=== PATIENT | female | born 1965 | race Caucasian/White ===

== ENCOUNTER 2019-01-11 17:18 | Emergency (ER) | payer OTHER ==
[2019-01-11 17:36] VITALS: TEMP 98.3; BMI 20.3
--- NOTE | 2019-01-11 18:15 | PDOC ---
History of Present Illness - General Chief Complaint: Chest Pain Stated Complaint: CHEST PAIN Time Seen by Provider: 01/11/19 17:28 History Source: Patient Exam Limitations: No Limitations - History of Present Illness Initial Comments: 53 yo F no PMH p/w short episodic chest pain. States that she felt the first episode earlier this month while running, 01/18. crampy, "like when your leg muscles cramp up", lasting only a couple of seconds. Had two more episodes earlier this week associated with exercise, but had two today, with one at rest. She states that her chest pain is left sided and does not radiate anywhere. Specifically denies nausea, diaphoresis, sense of doom. She does endorse feeling like she is having some extra heartbeats. Further denies abdominal pain, N/V, constipation/diarrhea, fevers/chills. 01/11/19 18:00 01/11/19 18:13 Past History - Past Medical History Allergies/Adverse Reactions: Allergies Allergy/AdvReac Type Severity Reaction Status Date / Time No Known Allergies Allergy Verified 01/11/19 17:19 Home Medications: Ambulatory Orders NK [No Known Home Medication] 01/11/19 COPD: No - Immunization History TDAP Vaccination: No - Suicide/Smoking/Psychosocial Hx Smoking Status: No Smoking History: Never smoked Have you smoked in the past 12 months: No Number of Cigarettes Smoked Daily: 0 Information on smoking cessation initiated: No Hx Alcohol Use: (3x/week) Review of Systems - Review of Systems Constitutional: No: Chills, Diaphoresis, Fever HEENTM: No: Recent change in vision, Double Vision, Hearing Loss, Difficulty Swallowing Respiratory: No: Cough, Orthopnea, Shortness of Breath Cardiac (ROS): Yes: Chest Pain (not currently) ABD/GI: No: Constipated, Diarrhea, Nausea, Vomiting Neurological: No: Headache *Physical Exam - Vital Signs Last Vital Signs Temp Pulse Resp BP Pulse Ox 98.3 F 56 L 18 109/71 99 01/11/19 17:18 01/11/19 17:18 01/11/19 17:18 01/11/19 17:18 01/11/19 17:18 - Physical Exam General Appearance: Yes: Nourished, Appropriately Dressed. No: Apparent Distress HEENT: positive: EOMI, BEVERLY, Normal ENT Inspection, Normal Voice, Symmetrical, Pharynx Normal, Hearing Grossly Normal Neck: positive: Trachea midline, Normal Thyroid, Supple Respiratory/Chest: positive: Lungs Clear, Normal Breath Sounds. negative: Chest Tender, Respiratory Distress, Accessory Muscle Use Cardiovascular: positive: Regular Rhythm, Regular Rate, Other (some extra beats) Gastrointestinal/Abdominal: positive: Normal Bowel Sounds, Soft. negative: Tender Musculoskeletal: positive: Normal Inspection. negative: CVA Tenderness Extremity: positive: Normal Capillary Refill, Normal Inspection, Normal Range of Motion Integumentary: positive: Normal Color, Dry Neurologic: positive: software writer II-XII NML intact, Fully Oriented, Alert, Normal Mood/ Affect, Normal Response, Motor Strength 10/13 ED Treatment Course - LABORATORY CBC & Chemistry Diagram: 01/11/19 18:25 01/11/19 18:25 Medical Decision Making - Medical Decision Making Labs reviewed, wnl 01/11/19 19:26 *DC/Admit/Observation/Transfer Diagnosis at time of Disposition: Atypical chest pain - Discharge Dispostion Disposition: HOME Condition at time of disposition: Guarded Decision to Admit order: No - Referrals - Patient Instructions Printed Discharge Instructions: DI for Atypical Chest Pain Additional Instructions: You were seen for episodic crampy chest pain. An EKG was performed, which did not show any acute changes. Your labs were also drawn, which were also found to be normal. Please follow up with your primary care physician for further work up. - Post Discharge Activity
--- NOTE | 2019-01-11 18:38 | PDOC ---
Attending Attestation - Resident Resident Name: Love Freeman - ED Attending Attestation I have performed the following: I have examined & evaluated the patient, The case was reviewed & discussed with the resident, I agree w/resident's findings & plan, Exceptions are as noted - HPI HPI: 01/11/19 18:34 5 episodes of momentary left upper anterior chest pain in the last few days, occurring both at rest and with exercise, described as a "cramping sensation" no radiation of the pain and no other associated symptoms. Denies indigestion, increased stress, muscle strain or injury. Has no cardiac risk factors including negative family history. - Physicial Exam PE: 01/11/19 18:36 Physical exam shows mild sinus bradycardia, but the patient is a runner. Heart and lungs are normal. She appears to be vigorous - Medical Decision Making 01/11/19 18:36 Assessment: Atypical chest pain, probably musculoskeletal or related to anxiety Plan: EKG and enzymes: Normal. CBC and chemistries: Normal. Rest. Patient intends to follow-up with personal service workers and get another stress test which she had 10 years ago for no apparent reason other than it was recommended by her primary physician.
[2019-01-11 18:45] LABS: BASO % 0.9 % (0-2.0); EOS % 2.5 % (0-4.5); HEMATOCRIT 40.7 % (32.4-45.2); HEMOGLOBIN 13.5 GM/dl (10.7-15.3); LYMPH % 15.9 % (8-40); MCHC 33.2 g/dl (32.0-36.0); MEAN CELL VOLUME 93.4 fl (80-96); MEAN PLT VOLUME 8.8 fl (7.5-11.1); MONO % 5.7 % (3.8-10.2); PLATELET COUNT 282 K/MM3 (134-434); RBC 4.36 M/mm3 (3.60-5.2); RDW 12.9 % (11.6-15.6)
[2019-01-11 19:03] LABS: ALBUMIN 4.1 g/dl (3.4-5.0); BILIRUBIN,TOTAL 0.5 mg/dl (0.2-1); CALCIUM 9.3 mg/dl (8.5-10); CREATININE 0.8 mg/dl (0.55-1.3); POTASSIUM 4.2 mmol/L (3.5-5.1); TOT PROT 7.5 g/dl (6.4-8.2)
[2019-01-11 19:38] VITALS: BP 118/71; PULSE 68
--- NOTE | 2019-01-12 09:15 | EKG ---
Test Reason : Blood Pressure : / mmHG Vent. Rate : 057 BPM Atrial Rate : 057 BPM P-R Int : 158 ms QRS Dur : 068 ms QT Int : 418 ms P-R-T Axes : 070 059 051 degrees QTc Int : 406 ms SINUS BRADYCARDIA OTHERWISE NORMAL ECG NO PREVIOUS ECGS AVAILABLE Confirmed by SHANNA CONWAY MD ([id number]) on 01/12/2019 9:15:26 AM Referred By: DARVIN SHOEMAKER Confirmed By:SHANNA CONWAY MD
== END 2019-01-11 19:35 | disposition home or self-care (01) ==
LOC: FER 17:18
DX: R07.89 Other chest pain (principal)
CPT/HCPCS: 36415; 80053; 84484; 85025; 93005; 99284-25

== ENCOUNTER 2019-05-22 07:37 | Emergency (ER) | payer OTHER ==
[2019-05-22] MEDS ORDERED: FLUORESCEIN NA 1 EA STRIP OD ONE (07:42)
[2019-05-22] MEDS ORDERED: TETRACAINE 0.5% OPHTH SOLN 2 ML BOTTLE OD ONE (07:43)
[2019-05-22] MEDS ORDERED: FLUORESCEIN NA 1 EA STRIP ONE (07:47)
[2019-05-22] MEDS ORDERED: TETRACAINE 0.5% OPHTH SOLN 2 ML BOTTLE ONE (07:47)
[2019-05-22 08:03] VITALS: BP 128/80; PULSE 71; TEMP 98.3; BMI 25.0
--- NOTE | 2019-05-22 08:18 | PDOC ---
History of Present Illness - General Chief Complaint: Eye Problem Stated Complaint: LEFT EYE PAIN Time Seen by Provider: 05/22/19 07:40 - History of Present Illness Initial Comments: 05/22/19 08:18 54 years old with no significant past medical history presents to the emergency department with sudden onset photophobia eye pain last night. Patient states she was in her room opened a shade bright light shined into her left eye and she developed sudden onset photophobia Past History - Past Medical History Allergies/Adverse Reactions: Allergies Allergy/AdvReac Type Severity Reaction Status Date / Time No Known Allergies Allergy Verified 05/22/19 07:38 Home Medications: Ambulatory Orders NK [No Known Home Medication] 01/11/19 COPD: No - Immunization History TDAP Vaccination: No - Psycho Social/Smoking Cessation Hx Smoking Status: No Smoking History: Never smoked Have you smoked in the past 12 months: No Number of Cigarettes Smoked Daily: 0 Information on smoking cessation initiated: No Hx Alcohol Use: No Drug/Substance Use Hx: No Review of Systems - Review of Systems Comments:: 05/22/19 08:18 ROS: A complete review of 10 out of 10 review of systems is taken and is negative apart from what is previously mentioned below and in the HPI. *Physical Exam - Vital Signs Last Vital Signs Temp Pulse Resp BP Pulse Ox 98.3 F 71 20 128/80 98 05/22/19 07:38 05/22/19 07:38 05/22/19 07:38 05/22/19 07:38 05/22/19 07:38 - Physical Exam 05/22/19 08:18 Vitals: Triage Vital signs reviewed General Appearance: No acute distress, well nourished well developed, Head: Atraumatic, Eyes: Visual acuity 20/30 bilaterally, left eye with conjunctival injection, left pupil mid dilated slightly reactive. Extraocular movements intact. Severe pain with consensual light reflex to right eye. No significant corneal abrasion noted on fluorescein stain to left eye. Psych: Normal mood, normal affect ED Treatment Course - Medications Given in the ED: ED Medications Discontinued Medications Generic Name Dose Route Start Last Admin Trade Name Freq PRN Reason Stop Dose Admin Fluorescein Sodium 1 ea 05/22/19 07:42 05/22/19 07:48 Fluorets - OD 05/22/19 07:43 1 ea ONCE ONE Administration Tetracaine HCl 1 drop 05/22/19 07:43 05/22/19 07:48 Pontocaine OD 05/22/19 07:44 1 drop ONCE ONE Administration Medical Decision Making - Medical Decision Making 05/22/19 08:19 Patient presents with severe photophobia conjunctival injection pain with consensual eye reflux Differential diagnosis includes iritis versus angle-closure glaucoma case discussed with Dr. Echevarria ophthalmology Skyler-Pen unavailable in the emergency department He he will meet the patient in his office for further evaluation Discharge - Discharge Information Problems reviewed: Yes Clinical Impression/Diagnosis: Eye pain Qualifiers: Laterality: left Qualified Code(s): H57.12 - Ocular pain, left eye Condition: Fair Disposition: HOME - Admission No - Follow up/Referral Referrals: Edouard Echevarria MD [Staff Physician] - - Patient Discharge Instructions Additional Instructions: Proceed directly to the office of Dr. Echevarria. He will meet you there for further evaluation. Follow all recommendations. Return to ED for any concerns. [address] [place] [address] - Post Discharge Activity
== END 2019-05-22 08:28 | disposition home or self-care (01) ==
LOC: FER 07:37
DX: H57.12 Ocular pain, left eye (principal)
CPT/HCPCS: 99281-25